=== PATIENT | male | born 1980 | race Caucasian/White ===

== ENCOUNTER 2017-08-06 16:44 | Emergency (ER) | payer MEDICAID ==
[~2017-08-06] VITALS: Ht 165.1 cm; Wt 84.0 kg
[2017-08-06 19:04] VITALS: BP 127/81
== END 2017-08-06 19:04 | disposition home or self-care (01) ==
LOC: ED 16:44
DX: M62.830 Muscle spasm of back (principal)
CPT/HCPCS: 20552; J1885; J2001